=== PATIENT | male | born 2000 | race Caucasian/White ===

== ENCOUNTER 2020-04-01 20:20 | Emergency (ER) | payer BC, MEDICAID ==
--- NOTE | 2020-04-01 20:42 | EDM.PDOC ---
ED HPI GENERAL MEDICAL PROBLEM - General Chief Complaint: Lower Extremity Injury/Pain Stated Complaint: TWISTED LEFT KNEE Time Seen by Provider: 04/01/20 20:36 Source of Information: Reports: Patient History Limitations: Reports: No Limitations - History of Present Illness INITIAL COMMENTS - FREE TEXT/NARRATIVE: twisted knee today. Left Knee Pain Score (Numeric/FACES): 6 - Related Data Allergies Allergy/AdvReac Type Severity Reaction Status Date / Time No Known Allergies Allergy Verified 04/01/20 20:24 Home Meds: Home Meds . [No Known Home Meds] 07/16/14 [History] Past Medical History - Past Health History Medical/Surgical History: Denies Medical/Surgical History Social & Family History - Tobacco Use Tobacco Use Status *Q: Current Some Day Tobacco User Years of Tobacco use: 1 Packs/Tins Daily: 0.2 Used Tobacco, but Quit: No - Caffeine Use Caffeine Use: Reports: None - Recreational Drug Use Recreational Drug Use: No Review of Systems - Review of Systems Review Of Systems: Comprehensive ROS is negative, except as noted in HPI. ED EXAM, GENERAL - Physical Exam Exam: See Below Exam Limited By: No Limitations General Appearance: Alert, WD/WN, Mild Distress, Other (discomfort) Ears: Hearing Grossly Normal Throat/Mouth: Normal Voice, No Airway Compromise Head: Atraumatic Neck: Non-Tender, Full Range of Motion Respiratory/Chest: No Respiratory Distress Cardiovascular: Regular Rate, Rhythm GI/Abdominal: Soft, Non-Tender (Male) Exam: Deferred Rectal (Males) Exam: Deferred Extremities: Other (left knee swollen tender R/P, NV wnl, gait limited to pain) Neurological: Alert, Oriented, Normal Cognition, No Motor/Sensory Deficits Psychiatric: Normal Affect, Normal Mood Skin Exam: Warm, Dry, Normal Color Lymphatic: No Adenopathy Course - Vital Signs Last Recorded V/S: Last Vital Signs Temp 37.2 C 04/01/20 20:32 Pulse 106 H 04/01/20 20:32 Resp 18 04/01/20 20:32 BP 187/104 H 04/01/20 20:32 Pulse Ox 96 04/01/20 20:32 - Re-Assessments/Exams Free Text/Narrative Re-Assessment/Exam: 04/01/20 21:19 results discussed with pt Departure - Departure Time of Disposition: 21:19 Disposition: Home, Self-Care 01 Condition: Good Clinical Impression: Derangement of knee - Discharge Information Instructions: Knee Sprain, Adult, [id number] Forms: ED Department Discharge Additional Instructions: 1) wear GAYLA for comfort 2) elevate left knee as much as possible next 3 to 4 days 3) see clinic for MRI SCAN if no significant improvement by Friday 4) take tylenol or motrin for discomfort Sepsis Event Note (ED) - Evaluation Sepsis Screening Result: No Definite Risk - Focused Exam Vital Signs: Vital Signs Temp Pulse Resp BP Pulse Ox 04/01/20 20:32 37.2 C 106 H 18 187/104 H 96
--- NOTE | 2020-04-01 21:07 | CR ---
PROCEDURE INFORMATION: Exam: XR Left Knee Exam date and time: 04/01/2020 8:43 PM Age: 19 years old Clinical indication: Other: Pain; Additional info: Twisted TECHNIQUE: Imaging protocol: XR Left knee. Views: 3 views. COMPARISON: CR Knee 1V or 2V Lt 07/16/2014 10:30 PM FINDINGS: Bones/joints: Normal. Soft tissues: Multiple ovoid calcific densities posterior to the medial femoral condyle. Otherwise unremarkable. IMPRESSION: No acute findings.
[2020-04-01 21:27] VITALS: BP 159/83; PULSE 89
== END 2020-04-01 21:27 | disposition home or self-care (01) ==
LOC: DL.ED 20:20
DX: S89.82XA Other specified injuries of left lower leg, initial encounter (principal); F17.210 Nicotine dependence, cigarettes, uncomplicated; X50.1XXA Overexertion from prolonged static or awkward postures, initial encounter
CPT/HCPCS: 73562-LT; 99282; 99283-25

== ENCOUNTER 2024-10-29 01:11 | Emergency (ER) | payer BC ==
[2024-10-29 03:50] VITALS: BP 175/120; PULSE 108
== END 2024-10-29 01:58 ==
LOC: DL.ED 01:11
DX: Z02.89 Encounter for other administrative examinations (principal)
CPT/HCPCS: 74018; 99283

== ENCOUNTER 2024-10-30 08:31 | Emergency (ER) | payer BC ==
[2024-10-30 09:06] VITALS: BP 175/99; PULSE 80
== END 2024-10-30 09:02 | disposition home or self-care (01) ==
LOC: DL.ED 08:31
DX: I10 Essential (primary) hypertension (principal); F17.290 Nicotine dependence, other tobacco product, uncomplicated
CPT/HCPCS: 99283; A9270

== ENCOUNTER 2024-11-05 09:22 | Emergency (ER) | payer BC ==
[2024-11-05] MEDS: Ondansetron 4 MG/2 ML SDV IVPUSH ONE (09:40)
[2024-11-05 09:49] LABS: BASOPHILS PERCENT AUTO 0.3 % (0.0-1.0); EOSINOPHILS PERCENT AUTO 3.7 % (1.0-3.0); LYMPHOCYTES PERCENT AUTO 27.3 % (20.5-50.1); MONOCYTES PERCENT AUTO 12.1 % (2-8); NEUTROPHILS PERCENT AUTO 56.6 % (42.2-75.2); PLATELET COUNT,PLT 247 10^3/uL (150-450); RED BLOOD CELL COUNT 5.64 10^6/uL (4.6-6.2); WHITE BLOOD CELL COUNT,WBC 11.5 10^3/uL (5.0-10.0)
[2024-11-05 10:00] LABS: APPEARANCE,URINE CLEAR (CLEAR); GLUCOSE,URINE NEGATIVE (NEGATIVE); OCCULT BLOOD,URINE NEGATIVE (NEGATIVE)
[2024-11-05 10:17] LABS: A/G RATIO 0.9; ALANINE AMINOTRANSFERASE,ALT 39.0 U/L (16-63); ASPARTATE AMNIOTRANSFERASE,AST 20.0 U/L (15-37); BILIRUBIN TOTAL 0.3 mg/dL (0.2-1.0); BLOOD UREA NITROGEN,BUN 6.0 mg/dL (7-18); CARBON DIOXIDE,CO2 31.0 mmol/L (21-32); CHLORIDE,CL 100.0 mmol/L (98-107); CREATININE 0.81 mg/dL (0.70-1.30); EST CRCL DRUG DOSING (CG) 157.55 mL/min; GLUCOSE RANDOM 91.0 mg/dL (70-99); POTASSIUM,K 4.0 mmol/L (3.5-5.1); PROTEIN TOTAL,TP 7.2 g/dL (6.4-8.2); SODIUM,NA 135.0 mmol/L (136-145)
[2024-11-05 10:18] LABS: ESTIMATED GFR 125.0 mL/min (>=60)
[2024-11-05] MEDS: Iopamidol 612 MG/ML 100 ML Bottle IVPUSH ONE (10:47)
[2024-11-05 11:08] VITALS: PULSE 65
[2024-11-05 12:59] VITALS: BP 134/85
== END 2024-11-05 12:55 | disposition left against medical advice (07) ==
LOC: DL.ED 09:22
DX: K81.9 Cholecystitis, unspecified (principal)
CPT/HCPCS: 36415; 74177; 80053; 81003; 83690; 84484; 85025; 85379; 93005; 96365; 96375; 99284; J1171; J2405; J2543; Q9967